=== PATIENT | male | born 1945 | race African-American/Black ===

== ENCOUNTER 2017-05-19 01:13 | Emergency (ER) | payer MEDICARE, MEDICAID ==
--- NOTE | 2017-05-19 08:00 | RAD ---
TWO VIEWS RIGHT HUMERUS: 05/19/2017 HISTORY: The patient fell at long-term and complains of right arm discomfort. FINDINGS: There is diffuse osteopenia. No obvious fracture is seen. There is no dislocation. IMPRESSION: Diffuse osteopenia without evidence of an acute fracture involving the right humerus. POS: [facility]
--- NOTE | 2017-05-19 08:09 | RAD ---
PELVIS 1 VIEW: Date: 05/19/17 HISTORY: Fall. Trauma. COMPARISON: None. FINDINGS: Obturator rings are intact. Femoral necks and heads are intact. No acute fracture or malalignment is appreciated. Pubic symphysis appears normal. Severe vascular calcification of aorta. IMPRESSION: No displaced fracture of the pelvis. POS: [facility]
--- NOTE | 2017-05-19 08:33 | CT ---
PRELIMINARY REPORT/[facility]/EMERGENCY AFTER HOURS PROCEDURE: EXAM: CT Head Without Intravenous Contrast CLINICAL HISTORY: 72 years old, male; Injury or trauma; Fall; Initial encounter; Blunt trauma (contusions or hematomas ); Consciousness not specified; Patient HX: S/P fall TECHNIQUE: Axial computed tomography images of the head/brain without intravenous contrast. COMPARISON: No relevant prior studies available. FINDINGS: Left temporoparietal hypodense mass is a third image is 27-32 measuring at least 3 cm in greatest di mension. Adjacent mild edema noted. Extensive gliosis and encephalomalacia in the left cerebral jo sphere with scattered punctate calcifications. There is mild expected dilatation of the left lateral ventricle and mild ventricular prominence there is moderate white matter disease noted. No acute intracranial hemorrhage or calvarial fracture. There is partial opacification of the right maxillary and sphenoid sinuses IMPRESSION: Suspected left-sided temporoparietal mass as described. Further evaluation with contrast enhanced MR I of the brain is recommended No definite acute intracranial hemorrhage this Thank you for allowing us to participate in the care of your patient. Dictated and Authenticated by: Zeeshan Oretga MD 05/19/2017 4:04 AM Central Time ([place] \T\ [place]) FINAL REPORT CT BRAIN WITHOUT CONTRAST: Date: 05/19/17 HISTORY: Fall. Hematoma. COMPARISON: CT brain dated 03/29/13. FINDINGS/IMPRESSION: Concordant with preliminary report by [facility]. 1. There is a peripherally hyperdense mass within the left temporal lobe that extends to the pariet al lobe with vasogenic edema. This may represent metastasis versus abscess. Follow-up MRI with and w ithout contrast is recommended. 2. There is an unchanged radiopaque foreign object in the left supraorbital soft tissues. 3. Left periorbital soft tissue forehead edema, likely contusion. POS: [facility]
--- NOTE | 2017-05-19 08:52 | CT ---
PRELIMINARY REPORT/[facility]/EMERGENCY AFTER HOURS PROCEDURE: EXAM: CT Cervical Spine Without Intravenous Contrast CLINICAL HISTORY: 72 years old, male; Injury or trauma; Fall; Initial encounter; Blunt trauma (contusions or hematomas ); Consciousness not specified; Patient HX: S/P fall TECHNIQUE: Axial computed tomography images of the cervical spine without intravenous contrast. COMPARISON: No relevant prior studies available. FINDINGS: Extensive kyphosis noted with chronic irregularities at the C5-C7 endplates noted. Levoscoliosis of the cervical spine observed aerated No definite acute fracture or subluxation. Craniovertebral junction is maintained. There is no signi ficant central canal stenosis. Severe foraminal stenosis at C7-T1. The visualized lung weeks are gr ossly clear with a tiny left-sided granuloma noted IMPRESSION: Extensive chronic changes as described No definite acute cervical fracture Thank you for allowing us to participate in the care of your patient. Dictated and Authenticated by: Zeeshan Ortega MD 05/19/2017 4:04 AM Central Time ([place] \T\ [facility]) FINAL REPORT CT CERVICAL SPINE WITHOUT CONTRAST: Date: 05/19/17 HISTORY: Fall. COMPARISON: CTA head from 03/30/13. FINDINGS: There is new focal kyphosis centered at C7. There is a lytic process in the posterior T1 vertebral b luisito with posterior soft tissue epidural extension. There is likely a pathologic fracture at C7 with complete erosion of the anterior one-half vertebral body. There is also fracture of the posterior el ements at the articular pillar of C7 on the right extending to the lamina. There appears to be an in filtrative lytic process and multiple vertebral bodies including C4, C5, and C6. These are all new f indings from the 03/30/13 examination. There are fractures of the necks of right first and second ribs, and left first rib. Evaluation is s omewhat limited due to the severe kyphosis. There is also a fracture of the right T2 transverse proc ess. IMPRESSION: 1. Fracture through the pars interarticularis of T1 on the right with complete collapse of the T1 v ertebral body, along with collapse of a majority of C7, likely all pathologic fracture. MRI with and without contrast recommended. 2. Fracture of the right transverse process of T2. 3. Retropulsion of likely the T1 vertebral body posteriorly narrowing the spinal canal to approxima tely 4.0 mm. Findings are in agreement with the preliminary report by [facility]. ER physician notified of findings via telephone at 0745 hours. CODE CR. POS: [facility]
--- NOTE | 2017-05-19 09:00 | RAD ---
PORTABLE AP CHEST: Date: 05/19/17 HISTORY: Fall at long term. Bruise to left forehead. Right arm discomfort, as well as chest pain and bilat eral hip pain. COMPARISON: 03/28/17. FINDINGS: Cardiac silhouette and pulmonary vasculature are within normal limits for the portable technique of the study. There is hazy density overlying the right upper lung zone, but repeat chest x-ray notes t hat this is not present and is likely related to overlying soft tissue density. There are increased bibasilar linear opacities which are stable compared to study on 03/28/17. There is fullness and pro minence in the right infrahilar region. This is also seen on the prior study. Light density was seen in this region on CTA of the chest on 10/19/16. Cardiac silhouette and pulmonary vasculature are wi thin normal limits. There is osteopenia. No obvious fracture is appreciated. Symmetric biapical pleu ral thickening is noted. Vascular calcification of thoracic aorta. No other interval change. IMPRESSION: 1. Mass in the right hilar/infrahilar region noted on prior CT exam. 2. Chronic bibasilar lung changes. 3. Diffuse osteopenia. No obvious fracture is appreciated. POS: [facility]
--- NOTE | 2017-05-21 20:12 | EKG ---
Test Reason : Blood Pressure : / mmHG Vent. Rate : 070 BPM Atrial Rate : 070 BPM P-R Int : 148 ms QRS Dur : 070 ms QT Int : 412 ms P-R-T Axes : 057 017 069 degrees QTc Int : 444 ms Sinus rhythm with Premature atrial complexes Septal infarct , age undetermined Abnormal ECG Confirmed by MARY ESCAMILLA D.O. ([id number]), subeditor BASHIR BLANK ([id number]) on 05/21/2017 8:11:55 PM Referred By: Confirmed By:MARY ESCAMILLA D.O.
== END 2017-05-19 05:52 | disposition home or self-care (01) ==
LOC: ERS 01:13
DX: S00.83XA Contusion of other part of head, initial encounter (principal); I25.2 Old myocardial infarction; F03.90 Unspecified dementia, unspecified severity, without behavioral disturbance, psychotic disturbance, mood disturbance, and anxiety; E78.5 Hyperlipidemia, unspecified; J44.9 Chronic obstructive pulmonary disease, unspecified; D64.9 Anemia, unspecified; I12.9 Hypertensive chronic kidney disease with stage 1 through stage 4 chronic kidney disease, or unspecified chronic kidney disease; N18.2 Chronic kidney disease, stage 2 (mild); F32.9 Major depressive disorder, single episode, unspecified; Z87.891 Personal history of nicotine dependence; W19.XXXA Unspecified fall, initial encounter; Y92.129 Unspecified place in nursing home as the place of occurrence of the external cause
CPT/HCPCS: 70450; 71010; 72125; 72170; 93005